=== PATIENT | male | born 1955 | race Caucasian/White ===

== ENCOUNTER → 2020-09-29 | Outpatient (CLI) | payer BC ==
[~2020-09-29] MED LIST: BENTYL20 MG PO; HYDROCHLOROTH12.5 M1; IBUPROFEN800 MG PO; LEVOFLOXACIN500 MG PO; LISINOPRIL20 MG; NASONEX0.05 MG/AC NS; NEXIUM40 MG PO; PERCOCET 650 MG1 TA1 PO; SINGULAIR10 MG PO; VICODIN 5/500 505 MG PO; ZOFRAN ODT8 MG PO
== END | disposition home or self-care (01) ==
LOC: COVID19 13:39
PROVIDERS: ATTEND Nurse Practitioner Family
DX: U07.1 COVID-19 (principal)

== ENCOUNTER → 2021-08-31 | Outpatient (CLI) | payer BC | END | disposition home or self-care (01) | LOC: COVID19 16:14 | PROVIDERS: ATTEND Internal Medicine | DX: U07.1 COVID-19 (principal) ==

== ENCOUNTER → 2023-07-13 | Outpatient (CLI) | payer BC ==
[2023-07-13 15:45] LABS: BASO # 0.1 10*3/uL (0.0-0.1); BASO % 1.1 % (0.0-1.0); EOS # 0.2 10*3/uL (0.0-0.4); EOS % 4.5 % (1.0-4.0); HEMATOCRIT 44.1 % (42.0-52.0); LYMPH # 1.4 10*3/uL (1.3-4.4); LYMPH % 26.9 % (27.0-41.0); MEAN CELL VOLUME 89.8 fl (80.0-94.0); MEAN CORPUSCULAR HGB 31.6 pg (27.0-31.0); MEAN CORPUSCULAR HGB CONC 35.1 g/dl (33.0-37.0); MEAN PLATELET VOLUME 9.2 fl (9.6-12.3); MONO # 0.5 10*3/uL (0.1-1.0); MONO % 9.2 % (3.0-9.0); NEUT # 3.1 10*3/uL (2.3-7.9); NEUT % 58.1 % (47.0-73.0); PLATELET COUNT AUTOMATED 230 10*3/uL (130-400); RED BLOOD COUNT 4.91 10*6/uL (4.50-5.90); RED CELL DISTRI WIDTH 13.2 % (0-14.5); WHITE BLOOD COUNT 5.3 10*3/uL (4.8-10.8)
[2023-07-14 12:07] LABS: ANTI-RNP ANTIBODIES <0.2 AI (0.0-0.9); CCP ANTIBODIES IGG/IGA 4 units (0-19); HBSAG Negative (Negative); HEP B CORE AB, IGM Negative (Negative); HEPATITIS C ANTIBODY Non Reactive (Non Reactive)
[2023-07-15 16:06] LABS: LUPUS DRVVT 40.2 sec (0.0-47.0); PTT-LA 27.7 sec (0.0-43.5)
[2023-07-16 10:05] LABS: LUPUS REFLEX INTERPRETATION Comment: (.)
[2023-07-19 17:05] LABS: HLA-B27 ANTIGEN Negative (.)
== END | disposition home or self-care (01) ==
LOC: LAB 15:18
PROVIDERS: ATTEND Orthopaedic Surgery
DX: M54.50 Low back pain, unspecified (principal); R53.83 Other fatigue